=== PATIENT | female | born 2000 | race Caucasian/White ===

== ENCOUNTER 2020-12-10 13:30 | Emergency (ER) | payer BC, OTHER ==
[~2020-12-10] VITALS: Ht 165.1 cm; Wt 55.0 kg
[2020-12-10] MEDS ORDERED: ALBUTEROL/IPRATROPIUM 2.5MG/0.5MG, 3 ML ONE (14:26)
[2020-12-10] MEDS ORDERED: ALBUTEROL/IPRATROPIUM 2.5MG/0.5MG, 3 ML NPPB ONE (14:30)
--- NOTE | 2020-12-10 15:03 | NUR ---
RECEIVED REPORT FROM MONICA VAN, TRANSFER OF CARE.
--- NOTE | 2020-12-10 15:13 | NUR ---
Patient is resting comfortably in bed. Bed in lowest, rails engaged, call light on lap. NADN. BF AT BEDSIDE. PT STATING SHE IS FEELING A LOT BETTER AFTER TX AND BREATIHG BETTER. WCTM.
--- NOTE | 2020-12-10 15:14 | NUR ---
PT ON RESP ISO
[2020-12-10 16:19] VITALS: BP 119/69
--- NOTE | 2020-12-10 16:28 | NUR ---
VERBAL ORDER STRAIGHT CATHETER WAS INPUTED ON THIS PT. WAS NOT SUPPOSED HAVE THIS DONE ON THIS PT.
--- NOTE | 2020-12-10 16:29 | NUR ---
Patient/Caregiver given discharge instructions and they have confirmed that they understand the instructions. Patient ambulatory with steady gait. NAD, all questions answered appropriately, denies additional needs at this time. No personal belongings left in room after discharge.
== END 2020-12-10 16:56 | disposition home or self-care (01) ==
LOC: ED 16:33
DX: J20.8 Acute bronchitis due to other specified organisms (principal); J00 Acute nasopharyngitis [common cold]; R06.00 Dyspnea, unspecified; R06.2 Wheezing; R94.31 Abnormal electrocardiogram [ECG] [EKG]; R06.02 Shortness of breath
CPT/HCPCS: 71046; 93005; 94640; 99283